=== PATIENT | female | born 1985 | race Caucasian/White ===

== ENCOUNTER 2019-04-07 06:40 | Inpatient (IN) | payer OTHER ==
[~2019-04-07] VITALS: Ht 154.9 cm; Wt 96.2 kg
[2019-04-07] MEDS: LACTATED RINGER'S 1,000 ML IV SCH ×2 (07:27→15:27)
[2019-04-07] MEDS ORDERED: METHYLERGONOVINE 0.2 MG INJ IM PRN ×2 (07:30→12:00)
[2019-04-07] MEDS ORDERED: CARBOPROST 250 MCG INJ IM PRN ×2 (07:30→12:00)
[2019-04-07] MEDS ORDERED: CEFAZOLIN 2 GM/50 ML (PMX) 50 ML IVPB SCH (07:30)
[2019-04-07] MEDS ORDERED: MISOPROSTOL 200 MCG TAB PR PRN ×2 (07:30→12:00)
[2019-04-07] MEDS ORDERED: OXYTOCIN 30 UNITS/LR 500 ML IV SCH ×2 (07:30→11:55)
[2019-04-07] MEDS ORDERED: OXYTOCIN 30 UNITS/LR 500 ML IV PRN ×2 (07:30→12:00)
[2019-04-07 08:25] VITALS: Ht 154.9 cm; Wt 96.2 kg
[2019-04-07] MEDS ORDERED: LACTATED RINGER'S 1,000 ML IV ONE (08:34)
--- NOTE | 2019-04-07 08:34 | PREAC ---
Date/Time of Note Date/Time of Note DATE: 04/07/19 TIME: 08:32 Anesthesia Eval and Record Evaluation Time Pre-Procedure Interview DATE: 04/07/19 TIME: 08:32 Age 33 Sex female NPO: 8 hrs Preoperative diagnosis twin Planned procedure repeat c section and bilateral tubal ligation Past Medical History Past Medical History: Includes Musculoskeletal: Rheumatoid arthritis : : (4), Para: (3), Gestational age: (37.5), Twin Surgery & Anesthesia Issues No known issue Meds Anticoagulation: No Beta Lucien within 24 hr: No Reason Beta Lucien not given: Pt. not on B-Lucien Current Medications Lactated Ringer's 1,000 ml @ 125 mls/hr Q8H IV ; Start 04/07/19 at 07:27 Cefazolin Sodium/ Dextrose 50 ml @ 100 mls/hr ONCE IVPB ; Start 04/07/19 at 07:30 Oxytocin/Lactated Ringer's 500 ml @ 125 mls/hr POST IV ; Start 04/07/19 at 07:30 Oxytocin/Lactated Ringer's 500 ml @ 0 mls/hr ONCE PRN IV .VAGINAL BLEEDING; Start 04/07/19 at 07:30 Methylergonovine Maleate (Methergine) 0.2 mg ONCE PRN IM .VAGINAL BLEEDING; Start 04/07/19 at 07:30 Carboprost Tromethamine (Hemabate) 250 mcg ONCE PRN IM .VAGINAL BLEEDING; Start 04/07/19 at 07:30 Misoprostol (Cytotec) 1,000 mcg ONCE PRN [place] .VAGINAL BLEEDING; Start 04/07/19 at 07:30 Meds reviewed: Yes Allergies Coded Allergies: No Known Allergy (Unverified , 04/07/19) Allergies Reviewed: Yes Labs/Studies Labs Reviewed: Reviewed by anesthesiologist (pending and will be reviewed ) Blood Bank Test 04/07/19 07:27 Blood Product Summary Counts test: N/A Pre-procedure Exam Airway: Adequate mouth opening, Adequate thyromental dist Mallampati: Mallampati II Teeth: Normal Lung: Normal Heart: Normal ASA Physical Status ASA physical status: 2 Emergency: None Planned Anesthetic Neuraxial: Spinal Planned Pain Management Sub-arachniod narcotics, Parenteral pain med Pre-operative Attestations Prior to commencing anesthesia and surgery, the patient was re-evaluated, there was verification of: *The patient's identity *The results of appropriate recent lab work and preoperative vital signs *The above evaluation not changing prior to induction *Anesthetic plan, risk benefits, alternative and complications discussed with patient/family; questions answered; patient/family understands, accepts and wishes to proceed. GIANNA LINDSAY MD April 07, 2019 08:34
[2019-04-07] MEDS ORDERED: METOCLOPRAMIDE 10 MG INJ IV ONE (09:00)
[2019-04-07] MEDS ORDERED: CITRIC ACID/NA CITRATE 30 ML CUP PO ONE (09:00)
[2019-04-07] MEDS ORDERED: FAMOTIDINE 20 MG INJ IV ONE (09:00)
[2019-04-07] MEDS ORDERED: morphine SULFATE/PF (10 MG/10 ML) INJ ONE (09:55)
[2019-04-07] MEDS ORDERED: ONDANSETRON 4 MG INJ ONE (10:12)
[2019-04-07] MEDS ORDERED: PHENYLephrine (100 MCG/ML) 10ML SYG ONE (10:12)
--- NOTE | 2019-04-07 10:19 | PREOPHP ---
DATE OF ADMISSION: 04/07/2019 HISTORY OF PRESENT ILLNESS: At 37 and 5/7 weeks, admitted to labor and delivery area for repeat C-se ction. This patient was admitted on 04/07/2019. She had care in my [facility] office and the care was uneventful. She has been followed by the perinatologist, Dr. James because of twi ns. Dr. James advised the patient to be delivered between 37 to 38 weeks. PAST PERSONAL HISTORY: No history of diabetes, TB, asthma nor allergy. The patient does not smoke, does not drink. She does not take any drugs except her iron and vitamins. She had menarche at the a ge of 9, every 28 days interval, 3 to 4 days duration, and moderate in amount. She is 4, par a 3. Her first delivery was in 2010, second 2014 and third 2017, all by . FAMILY HISTORY: Noncontributory. REVIEW OF SYSTEMS: CARDIOVASCULAR: No chest pains. RESPIRATORY: No cough. GASTROINTESTINAL: No diarrhea, no vomiting. GENITOURINARY: No dysuria. PHYSICAL EXAMINATION: GENERAL: Reveals a conscious, coherent lady and in no acute distress. VITAL SIGNS: Her blood pressure 120/80, pulse rate 80 per minute, respirations 16 per minute. BREASTS, HEART AND LUNGS: Within normal limits. ABDOMEN: Soft, fundic height 39 cm. heart tones normal for both babies. PELVIC: Revealed the cervix to be 2 to 3 cm dilated, 100% effaced station floating in cephalic prese ntation with the bag of water intact. EXTREMITIES: No pedal edema. ADMITTING DIAGNOSES: 37 and 5/7 weeks intrauterine twin with 3 previous sections, and multiparity. The patient desires sterilization. The patient was planned to have a repeat C-sec tion, plus tubal ligation. The procedures were explained to the patient and she understood everythin g totally. The risks, benefits and alternatives were discussed with her as well. Dictated By: KARINA TRIANA MD NS/NTS Conf#: [id number] DID#: [id number] CC: KARINA TRIANA MD;*EndCC*
[2019-04-07] MEDS ORDERED: MIDAZOLAM 1 MG/ML 2 ML INJ ONE (10:30)
[2019-04-07] MEDS ORDERED: FENTAnyl 50 MCG/ML VIAL ONE (10:44)
[2019-04-07] MEDS ORDERED: HYDROmorphONE 1 MG/5 ML IV SYRINGE IV PRN ×3 (11:00)
[2019-04-07] MEDS ORDERED: KETOROLAC 30 MG INJ IV PRN ×2 (11:00→12:30)
[2019-04-07] MEDS ORDERED: MEPERIDINE 25 MG INJ IV PRN (11:00)
[2019-04-07] MEDS ORDERED: PROCHLORPERAZINE 10 MG INJ IV PRN (11:00)
[2019-04-07] MEDS ORDERED: ONDANSETRON 4 MG INJ IV PRN ×2 (11:00→12:30)
[2019-04-07] MEDS ORDERED: DIPHENHYDRAMINE 50 MG INJ IV PRN ×2 (11:00→12:30)
[2019-04-07] MEDS ORDERED: FENTAnyl 50 MCG/ML VIAL IV PRN ×3 (11:00)
[2019-04-07] MEDS ORDERED: LACTATED RINGER'S 1,000 ML IV SCH (11:55)
--- NOTE | 2019-04-07 11:55 | OPPN ---
Date/Time of Note Date/Time of Note DATE: 04/07/19 TIME: 11:53 Operative Report Planned Procedure Procedure date April 07, 2019 Procedure(s) REPEAT CSECTION AND BTL Performed by see signature line Mason Tender: SUNITA RAUSCH 2nd Mason Tender none Pre-procedure diagnosis 37 WEEKS TWIN PREVIOUS CSECTION MULTIPARITY [id number] Anesthesia Type: [id number] spinal Post-Procedure Post-procedure diagnosis 37 WEEKS TWIN PREVIOUS CSECTION MULTIPARITY Findings TWIN A Live Baby BOY, Apgars9/9 5LBS 9OZ TWIN B GIRL LIVE BABY GIRL 8/9 5LBS Estimated Blood Loss: 600 - 700 mls Specimen(s) none Grafts/Implant(s) PLACENTA Complication(s) none KARINA TRIANA MD April 07, 2019 11:55
[2019-04-07] MEDS ORDERED: HYDROCODONE/APAP (5/325) TAB PO PRN (12:00)
[2019-04-07] MEDS ORDERED: METHYLERGONOVINE 0.2 MG TAB PO PRN (12:00)
[2019-04-07] MEDS ORDERED: LANOLIN HPA 1 PKT TOP PRN (12:00)
[2019-04-07] MEDS ORDERED: HYDROmorphONE 0.5 MG/0.5 ML SYG IV PRN ×2 (12:30)
[2019-04-07] MEDS ORDERED: NALOXONE (0.4 MG/ML) INJ IV PRN (12:30)
[2019-04-07] MEDS ORDERED: ZOLPIDEM 5 MG TAB PO PRN (12:30)
--- NOTE | 2019-04-07 13:16 | OPR ---
DATE OF OPERATION: 04/07/2019 PREOPERATIVE DIAGNOSES: 1. A 37 and 5/7 weeks 'intrauterine , twin. 2. Three previous sections. 3. Multiparity. 4. The patient desires sterilization. POSTOPERATIVE DIAGNOSES: 1. A 37 and 5/7 weeks 'intrauterine , twin. 2. Three previous sections. 3. Multiparity. 4. The patient desires sterilization. SURGEON: Karina Nicholas MD SUPERVISOR SEWER SYSTEM: Andre Rayo MD ANESTHESIA: Spinal. ANESTHESIOLOGIST: Dione Bueno MD OPERATION PERFORMED: Repeat low transverse section, plus complete breech extraction for the second baby and bilateral tubal ligation and transection. OPERATIVE TECHNIQUE: Under spinal anesthesia, the patient was prepped and draped in the usual fashio n for abdominal surgery. After checking for the effect of the anesthesia, Pfannenstiel incision, 14 cm skin incision was performed. The incision was carried from the skin up to the fascia. Upon openi ng the skin up to the fascia, small blood vessels were noted to be oozing and these were all cauteriz ed. Fascia was opened transversely followed by splitting the muscles vertical and the peritoneum giovana tically. Upon opening the abdominal cavity, the bladder blade was put in place. A small lianne was pe rformed from the serosa up to the endometrium on the lower uterine segment and the lianne was carried s ideways with the aid of my 2 fingers. My left hand was inserted in the lower segment of the uterus a nd delivered the first baby. Bag of water was ruptured. Baby's head was delivered. Baby's airways were quickly suctioned with amniotic fluid. The anterior shoulder, posterior shoulder and rest of th e body of the baby were delivered. Baby's airways were quickly suctioned with amniotic fluid. Cord was clamped after 30 seconds. Baby was handed to the NICU team. Cord blood was obtained. Then, the second baby was delivered by rupturing the bag of water and the baby's buttocks were delivered follo wed by the delivery of the rest of the body of the baby by complete breech extraction without difficu lty. Baby's airways was quickly suctioned with amniotic fluid. Cord was clamped without waiting for 30 seconds. Cord segment was obtained for blood gases. Cord blood was obtained. Baby was handed t o the NICU team. The placenta was delivered manually and complete. Two placentas were noted. Uteru s was exteriorized. The uterus was cleansed with wet lap sponge to make sure that no membranes were left behind. After correct sponge count, the uterus was closed in the usual fashion using #1 c hromic for the first layer, continuous locking was used followed by #1 chromic for the second layer, imbricating sutures were used. Bleeders were checked and there was no bleeding noted. After checkin g for any bleeders in which there were none, both tubes and ovaries were inspected. They were health y looking. The back of the uterus was checked for any hematoma and there was none noted. Then, the right tube was grasped on the center where the avascular area was. A 1 cm tube was stick tied at the proximal and distal portion with 2-0 silk, stick tie with 2-0 chromic above the first silk tie and a nother free tie with 2-0 chromic above the second tie. The right tube was cut and the cut ends were cauterized. Fimbria was identified. Same thing was done on the left side. Left fimbria was identif ied. Bleeders were checked and there was no bleeding noted. Then once again, uterine incision was c hecked for any bleeders and there was no bleeding noted. After correct sponge count, needle count an d instrument count as confirmed by the technical photographer and clinical statistical programmer, the abdomen was closed in the usual fashion using 0 Vicryl for the peritoneum, 0 Vicryl for the muscles. For the fascia, 0 Vicryl anjelica nuous stitch was used followed by few mzkxib-kw-[id number] suture. For the subcutaneous tissue, it was cl osed with 3-0 Vicryl and the skin was closed with 3-0 Vicryl, subcuticular suture was used. The maria e ent tolerated the procedure well. Estimated blood loss was about 700 mL. After the , vagin al exam was done. Manual exploration of the uterus revealed some blood clots obtained from inside th e uterus, about 200 mL of blood clots noted and the uterus was slightly hypotonic, so that Methergine was given and Hemabate was given and uterus contracted. Baby A was delivered, baby boy at 10:24 a.m ., 9 and 9, weighing 2595 grams, 5 pounds and 9 ounces, 18.75 inches long. Baby B was delivere d at 10:26 a.m., 8 and 9, 5 pounds weighing 2255 grams, 18 inches long. Dictated By: KARINA DEE/CARMEN Conf#: [id number] DID#: [id number]
[2019-04-07 14:30] VITALS: BP 110/62; PULSE 72; RESP 18
[2019-04-07 15:30] VITALS: BP 115/78; RESP 20
[2019-04-07 19:50] VITALS: BP 125/61; PULSE 89; RESP 19
[2019-04-07] MEDS: GUAIFENESIN/DM 5ML CUP PO SCH (22:31)
[2019-04-07] MEDS: AMOXICILLIN 500 MG CAP PO SCH (22:31)
[2019-04-07] MEDS: SENNA/DOCUSATE NA (8.6MG/50MG) TAB PO SCH (22:31)
[2019-04-07 23:50] VITALS: BP 105/60; PULSE 71; RESP 19
[2019-04-08] MEDS: LACTATED RINGER'S 1,000 ML IV SCH (02:04)
[2019-04-08 03:50] VITALS: BP 106/53; PULSE 83; RESP 19
[2019-04-08] MEDS: AMOXICILLIN 500 MG CAP PO SCH ×3 (06:15→21:52)
[2019-04-08 08:20] VITALS: BP 116/61; PULSE 74; RESP 18
[2019-04-08] MEDS: GUAIFENESIN/DM 5ML CUP PO SCH ×4 (10:01→21:22)
[2019-04-08] MEDS: HYDROCODONE/APAP (5/325) TAB PO PRN ×3 (11:09→21:53)
[2019-04-08] MEDS: SENNA/DOCUSATE NA (8.6MG/50MG) TAB PO SCH ×2 (11:09→21:22)
--- NOTE | 2019-04-08 14:18 | PAC ---
Date/Time of Note Date/Time of Note DATE: 04/08/19 TIME: 14:17 Post-Anesthesia Notes Post-Anesthesia Note Last documented vital signs Vital Signs Date Temp Pulse Resp B/P (MAP) Pulse Ox O2 O2 Flow FiO2 Time Delivery Rate 04/08/19 98.9 83 19 106/53 96 Room Air 03:50 (70) 04/07/19 21 20:13 Activity: WNL Respiratory function: WNL Cardiovascular function: WNL Mental status: Baseline Pain reasonably controlled: Yes Hydration appropriate: Yes Nausea/Vomiting absent: Yes GIANNA LINDSAY MD April 08, 2019 14:18
[2019-04-08] MEDS: IBUPROFEN 800 MG TAB PO PRN (15:51)
[2019-04-08 16:00] VITALS: BP 109/63; PULSE 92; RESP 18
[2019-04-08 20:00] VITALS: BP 106/66; PULSE 81; RESP 17
--- NOTE | 2019-04-08 21:37 | PN ---
Date/Time of Note Date/Time of Note DATE: 04/08/19 TIME: 21:35 Assessment/Plan VTE Prophylaxis Risk score (from Ns)>0 risk: 2 SCD applied (from [facility]): No SCD contraindicated: low risk/ambulating Pharmacological prophylaxis: NA/contraindicated Pharm contraindication: low risk/ambulating Lines/Catheters IV Catheter Type (from [facility]): Peripheral IV Assessment/Plan Assessment/Plan POSTCSECTION DAY 1 CHRONIC IRON DEFICIENCY ANEMIA ORDERED ADVANCE DIET TOLERATED CBC ON 3RD POSTOP DAY Result Diagram: 04/08/19 0838 04/08/19 0838 Results 24hrs Laboratory Tests Test 04/08/19 05:59 04/08/19 08:38 Lab Scanned Report REFERENCE LAB White Blood Count 7.9 # Red Blood Count 3.19 L Hemoglobin 9.4 L Hematocrit 28.9 L Mean Corpuscular Volume 90.6 Mean Corpuscular Hemoglobin 29.5 Mean Corpuscular Hemoglobin Concent 32.5 Red Cell Distribution Width 14.8 H Platelet Count 198 Mean Platelet Volume 10.2 Immature Granulocytes % 0.400 Neutrophils % 72.7 Lymphocytes % 20.6 Monocytes % 5.2 Eosinophils % 0.8 Basophils % 0.3 Nucleated Red Blood Cells % 0.0 Immature Granulocytes # 0.030 Neutrophils # 5.8 Lymphocytes # 1.6 Monocytes # 0.4 Eosinophils # 0.1 Basophils # 0.0 Nucleated Red Blood Cells # 0.0 Sodium Level 136 Potassium Level 4.3 Chloride Level 106 Carbon Dioxide Level 27 Anion Gap 3 L Blood Urea Nitrogen 9 Creatinine 0.43 L Est Glomerular Filtrat Rate mL/min > 60 Glucose Level 53 L Calcium Level 8.1 L Subjective 24 Hr Interval Summary Free Text/Dictation POST CSECTION DAY 1 COMPLAIN OF INCISIONAL PAINS GOOD URINE OUTPUT PASSING GAS PER RECTUM NO BOWEL MOVEMENT YET Exam/Review of Systems Exam Vitals Vital Signs Date Temp Pulse Resp B/P (MAP) Pulse Ox O2 O2 Flow FiO2 Time Delivery Rate 04/08/19 98.4 81 17 106/66 Room Air 20:00 (79) 04/08/19 95 08:20 04/07/19 21 20:13 Intake and Output 04/07/19 04/07/19 04/08/19 1515:00 23:00 07:00 IntakeIntake Total 1125 ml 375 ml 1000 ml OutputOutput Total 300 ml 1000 ml BalanceBalance 825 ml 375 ml 0 ml Exam VITAL SIGNS STABLE: YES AFEBRILE: YES BREAST NOT ENGORGED, NON-TENDER, NO APPRECIABLE MASS: YES LUNGS CLEAR, NO RALES, WHEEZES, RHONCHI: YES SINUS RHYTHM WITHOUT MURMUR: YES ABDOMEN: NON-TENDER FUNDUS: BELOW UMBILICUS BOWEL SOUNDS: PRESENT UTERUS: FIRM INCISION (CLEAN, DRY, AND INTACT): YES LOCHIA: LIGHT DEEP TENDON REFLEXES: 0 EXTREMITIES: NO CALF TENDERNESS EDEMA SCALE: NONE Results Results 24hrs Laboratory Tests Test 04/08/19 05:59 04/08/19 08:38 Lab Scanned Report REFERENCE LAB White Blood Count 7.9 # Red Blood Count 3.19 L Hemoglobin 9.4 L Hematocrit 28.9 L Mean Corpuscular Volume 90.6 Mean Corpuscular Hemoglobin 29.5 Mean Corpuscular Hemoglobin Concent 32.5 Red Cell Distribution Width 14.8 H Platelet Count 198 Mean Platelet Volume 10.2 Immature Granulocytes % 0.400 Neutrophils % 72.7 Lymphocytes % 20.6 Monocytes % 5.2 Eosinophils % 0.8 Basophils % 0.3 Nucleated Red Blood Cells % 0.0 Immature Granulocytes # 0.030 Neutrophils # 5.8 Lymphocytes # 1.6 Monocytes # 0.4 Eosinophils # 0.1 Basophils # 0.0 Nucleated Red Blood Cells # 0.0 Sodium Level 136 Potassium Level 4.3 Chloride Level 106 Carbon Dioxide Level 27 Anion Gap 3 L Blood Urea Nitrogen 9 Creatinine 0.43 L Est Glomerular Filtrat Rate mL/min > 60 Glucose Level 53 L Calcium Level 8.1 L Medications Medication Current Medications Oxytocin/Lactated Ringer's 500 ml @ 0 mls/hr ONCE PRN IV .VAGINAL BLEEDING; Start 04/07/19 at 07:30 Methylergonovine Maleate (Methergine) 0.2 mg Q6H PRN PO .VAGINAL BLEEDING; Start 04/07/19 at 12:00 Acetaminophen/ Hydrocodone Bitart ([place] (5/325)) 1 tab Q4H PRN PO MODERATE PAIN LEVEL 4-6; Start 04/07/19 at 12:00 Acetaminophen/ Hydrocodone Bitart ([place] (5/325)) 2 tab Q4H PRN PO SEVERE PAIN LEVEL 7-10 Last administered on 04/08/19at 16:58; Admin Dose 2 TAB; Start 04/07/19 at 12:00 Ibuprofen (Motrin) 800 mg Q8 PRN PO MILD PAIN LEVEL 1-3 Last administered on 04/08/19 15:51; Admin Dose 800 MG; Start 04/07/19 at 12:00 Simethicone (Mylicon) 160 mg Q8H PRN PO .GAS; Start 04/07/19 at 12:00 Senna/Docusate Sodium (Senokot-S) 1 tab BID PO Last administered on 04/08/19 21:22; Admin Dose 1 TAB; Start 04/07/19 at 21:00 Lanolin (Lanolin Hpa) 1 applic BEDSIDE MEDICATION PRN TOP .NIPPLES; Start 04/07/19 at 12:00 Diphtheria/ Tetanus/Acell Pertussis (Adacel) 0.5 ml ONCE ONCE IM* ; Start 04/10/19 at 09:00; Stop 04/10/19 at 09:01 Measles/Mumps/ Rubella Vaccine Live (Mmr Ii Vaccine) 0.5 ml ONCE ONCE SC* ; Start 04/10/19 at 09:00; Stop 04/10/19 at 09:01 Oxytocin/Lactated Ringer's 500 ml @ 0 mls/hr ONCE PRN IV .VAGINAL BLEEDING; Start 04/07/19 at 12:00 Methylergonovine Maleate (Methergine) 0.2 mg ONCE PRN IM .VAGINAL BLEEDING; Start 04/07/19 at 12:00 Carboprost Tromethamine (Hemabate) 250 mcg ONCE PRN IM .VAGINAL BLEEDING; Start 04/07/19 at 12:00 Misoprostol (Cytotec) 1,000 mcg ONCE PRN [place] .VAGINAL BLEEDING; Start 04/07/19 at 12:00 Guaifenesin/ Dextromethorphan (Robitussin Dm Liquid Cup) 10 ml QID PO Last administered on 04/08/19 21:22; Admin Dose 10 ML; Start 04/07/19 at 21:00 Amoxicillin (Amoxicillin) 500 mg Q8 PO Last administered on 04/08/19at 15:44; Admin Dose 500 MG; Start 04/07/19 at 22:00 KARINA TRIANA MD April 08, 2019 21:37
[2019-04-09] MEDS: IBUPROFEN 800 MG TAB PO PRN ×3 (02:23→22:11)
[2019-04-09 03:49] VITALS: BP 109/67; PULSE 87; RESP 18
[2019-04-09] MEDS: HYDROCODONE/APAP (5/325) TAB PO PRN ×2 (05:40→16:19)
[2019-04-09] MEDS: AMOXICILLIN 500 MG CAP PO SCH ×3 (05:40→22:10)
[2019-04-09] MEDS ORDERED: BISACODYL 10 MG SUPP PR ONE ×2 (06:30→18:00)
[2019-04-09] MEDS ORDERED: MAGNESIUM HYDROXIDE 30ML CUP PO ONE ×2 (06:30→18:00)
[2019-04-09 08:00] VITALS: BP 107/63; PULSE 77; RESP 16
[2019-04-09] MEDS: SENNA/DOCUSATE NA (8.6MG/50MG) TAB PO SCH ×2 (09:26→21:00)
[2019-04-09] MEDS: GUAIFENESIN/DM 5ML CUP PO SCH ×4 (10:49→20:49)
[2019-04-09 15:45] VITALS: BP 124/74; PULSE 103; RESP 18
[2019-04-09 16:00] VITALS: BP_SYST 124; BP_DIAS 74; BP_DIAS 94; PULSE 103; RESP 18
[2019-04-09 20:45] VITALS: BP 120/64; PULSE 91; RESP 18
[2019-04-10 04:00] VITALS: BP 105/60; PULSE 70; RESP 17
[2019-04-10] MEDS: AMOXICILLIN 500 MG CAP PO SCH ×2 (05:27→17:20)
[2019-04-10] MEDS: HYDROCODONE/APAP (5/325) TAB PO PRN ×2 (05:28→17:20)
[2019-04-10 08:00] VITALS: BP_SYST 109; BP_SYST 156; BP_DIAS 62; BP_DIAS 99; PULSE 71; PULSE 88; RESP 18; RESP 20
[2019-04-10] MEDS: SENNA/DOCUSATE NA (8.6MG/50MG) TAB PO SCH (09:00)
[2019-04-10] MEDS ORDERED: MEASLES,MUMPS,RUBELLA VACCINE INJ SC* ONE (09:00)
[2019-04-10] MEDS ORDERED: DIPHTH/TET/ACEL PERTUSS (ADULT) 0.5 ML VIAL IM* ONE (09:00)
[2019-04-10] MEDS: IBUPROFEN 800 MG TAB PO PRN (11:02)
[2019-04-10] MEDS: GUAIFENESIN/DM 5ML CUP PO SCH ×2 (11:02→13:00)
[2019-04-10 16:00] VITALS: BP 122/70; PULSE 89; RESP 20
--- NOTE | 2019-04-10 18:27 | PN ---
Date/Time of Note Date/Time of Note DATE: 04/10/19 TIME: 18:26 Assessment/Plan VTE Prophylaxis Risk score (from Nsg)>0 risk: 2 SCD applied (from Nsg): No SCD contraindicated: low risk/ambulating Pharmacological prophylaxis: NA/contraindicated Pharm contraindication: low risk/ambulating Lines/Catheters IV Catheter Type (from Nrsg): Peripheral IV Assessment/Plan Assessment/Plan POST CSECTION CHRONIC IRON DEFICIENCY ANEMIA HOME TODAT COUNSELED INSTRUCTED PRESCRIPTION GIVEN FOR PAIN RETURN TO CLINIC IN 2 WEEKS CALL OFFICE IF THERE IS ANY PROBLEM OR CONCERN CONTINUE WITH VITAMINS OD AND FERROUS SULFATE 325MG PO TID DIET ADVISED Result Diagram: 04/10/19 0744 04/08/19 0838 Results 24hrs Laboratory Tests Test 04/10/19 07:44 White Blood Count 9.7 # Red Blood Count 2.86 L Hemoglobin 8.3 L Hematocrit 26.2 L Mean Corpuscular Volume 91.6 Mean Corpuscular Hemoglobin 29.0 Mean Corpuscular Hemoglobin Concent 31.7 L Red Cell Distribution Width 15.2 H Platelet Count 221 Mean Platelet Volume 9.9 Immature Granulocytes % 0.500 H Neutrophils % 75.5 Lymphocytes % 16.4 Monocytes % 5.4 Eosinophils % 2.1 Basophils % 0.1 Nucleated Red Blood Cells % 0.0 Immature Granulocytes # 0.050 H Neutrophils # 7.3 Lymphocytes # 1.6 Monocytes # 0.5 Eosinophils # 0.2 Basophils # 0.0 Nucleated Red Blood Cells # 0.0 Subjective 24 Hr Interval Summary Free Text/Dictation POST CSECTION LITTLE BOWEL MOVEMENT GOOD URINE OUTPUT FEELS LESS INCISIONAL PAINS Exam/Review of Systems Exam Vitals Vital Signs Date Temp Pulse Resp B/P (MAP) Pulse Ox O2 O2 Flow FiO2 Time Delivery Rate 04/10/19 98.2 88 18 156/99 Room Air 08:00 (118) 04/08/19 95 08:20 04/07/19 21 20:13 Intake and Output 04/09/19 04/09/19 04/10/19 1515:00 23:00 07:00 IntakeIntake Total 380 ml BalanceBalance 380 ml Exam VITAL SIGNS STABLE: YES AFEBRILE: YES BREAST NOT ENGORGED, NON-TENDER, NO APPRECIABLE MASS: YES LUNGS CLEAR, NO RALES, WHEEZES, RHONCHI: YES SINUS RHYTHM WITHOUT MURMUR: YES ABDOMEN: NON-TENDER FUNDUS: BELOW UMBILICUS BOWEL SOUNDS: PRESENT UTERUS: FIRM INCISION (CLEAN, DRY, AND INTACT): YES LOCHIA: LIGHT DEEP TENDON REFLEXES: 0 EXTREMITIES: NO CALF TENDERNESS EDEMA SCALE: NONE Results Results 24hrs Laboratory Tests Test 04/10/19 07:44 White Blood Count 9.7 # Red Blood Count 2.86 L Hemoglobin 8.3 L Hematocrit 26.2 L Mean Corpuscular Volume 91.6 Mean Corpuscular Hemoglobin 29.0 Mean Corpuscular Hemoglobin Concent 31.7 L Red Cell Distribution Width 15.2 H Platelet Count 221 Mean Platelet Volume 9.9 Immature Granulocytes % 0.500 H Neutrophils % 75.5 Lymphocytes % 16.4 Monocytes % 5.4 Eosinophils % 2.1 Basophils % 0.1 Nucleated Red Blood Cells % 0.0 Immature Granulocytes # 0.050 H Neutrophils # 7.3 Lymphocytes # 1.6 Monocytes # 0.5 Eosinophils # 0.2 Basophils # 0.0 Nucleated Red Blood Cells # 0.0 Medications Medication Current Medications Oxytocin/Lactated Ringer's 500 ml @ 0 mls/hr ONCE PRN IV .VAGINAL BLEEDING; Start 04/07/19 at 07:30 Methylergonovine Maleate (Methergine) 0.2 mg Q6H PRN PO .VAGINAL BLEEDING; Start 04/07/19 at 12:00 Acetaminophen/ Hydrocodone Bitart ([place] (5/325)) 1 tab Q4H PRN PO MODERATE PAIN LEVEL 4-6 Last administered on 04/10/19 11:02; Admin Dose 1 TAB; Start 04/07/19 at 12:00 Acetaminophen/ Hydrocodone Bitart ([place] (5/325)) 2 tab Q4H PRN PO SEVERE PAIN LEVEL 7-10 Last administered on 04/10/19 17:20; Admin Dose 2 TAB; Start 04/07/19 at 12:00 Ibuprofen (Motrin) 800 mg Q8 PRN PO MILD PAIN LEVEL 1-3 Last administered on 11:02; Admin Dose 800 MG; Start 04/07/19 at 12:00 Simethicone (Mylicon) 160 mg Q8H PRN PO .GAS Last administered on 04/09/19at 17:39; Admin Dose 160 MG; Start 04/07/19 at 12:00 Senna/Docusate Sodium (Senokot-S) 1 tab BID PO Last administered on 04/09/19at 09:26; Admin Dose 1 TAB; Start 04/07/19 at 21:00 Lanolin (Lanolin Hpa) 1 applic BEDSIDE MEDICATION PRN TOP .NIPPLES; Start 04/07/19 at 12:00 Oxytocin/Lactated Ringer's 500 ml @ 0 mls/hr ONCE PRN IV .VAGINAL BLEEDING; Start 04/07/19 at 12:00 Methylergonovine Maleate (Methergine) 0.2 mg ONCE PRN IM .VAGINAL BLEEDING; Start 04/07/19 at 12:00 Carboprost Tromethamine (Hemabate) 250 mcg ONCE PRN IM .VAGINAL BLEEDING; Start 04/07/19 at 12:00 Misoprostol (Cytotec) 1,000 mcg ONCE PRN [place] .VAGINAL BLEEDING; Start 04/07/19 at 12:00 Guaifenesin/ Dextromethorphan (Robitussin Dm Liquid Cup) 10 ml QID PO Last administered on 04/10/19at 11:02; Admin Dose 10 ML; Start 04/07/19 at 21:00 Amoxicillin (Amoxicillin) 500 mg Q8 PO Last administered on 04/10/19at 17:20; Admin Dose 500 MG; Start 04/07/19 at 22:00 KARINA TRIANA MD April 10, 2019 18:27
--- NOTE | 2019-04-11 19:26 | DELSUM ---
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 Babies in Womb: 2 Attempted: No Labor Anesthesia: None LABOR INFORMATION Reason for Induction: Not Applicable Oxytocin: N/A Group B Beta Strep: Negative Antibiotics # of Doses: 1 Antibiotics Time of Last Dose: 04/07/2019 09:56 Steroids Given: None Reason Steroids Not Administered: Not Applicable MEMBRANES Membranes Rupture Method: Artificial Rupture of Membranes: 04/07/2019 10:24 Length of Rupture (hr): 0.00 Amniotic Fluid Color: Clear Amniotic Fluid Amount: Moderate Amniotic Fluid Odor: None STAGES OF LABOR Stage 3 hr: 0 Stage 3 min: 4 CSECTION DELIVERY Primary Indication: Repeat Elective Secondary Indication: Multiple Gestation CSection Urgency: Elective CSection Incidence: Repeat Labor: No Labor Elective: N/A CSection Incision: Lower Uterine Transverse Sterilization Procedure: [place] BABY A INFORMATION Delivery Date/Time: 04/07/2019 10:24 Method of Delivery: Born in Route : Yes : N/A Forceps: N/A Vacuum Extraction: N/A Shoulder Dystocia : N/A SHOULDER DYSTOCIA BABY A Infant Delivery Date/Time: 04/07/2019 10:24 PRESENTATION/POSITION BABY A Presentation: Cephalic Cephalic Presentation: Vertex Vertex Position: Left Occipital Anterior Breech Presentation: N/A PLACENTA INFORMATION BABY A Placenta Delivery Time : 04/07/2019 10:28 Placenta Method of Delivery: Manual Removal Placenta Status: Delivered SCORES BABY A Heart Rate 1 min: >100 bpm Resp Effort 1 min: Good Cry Reflex Irritability 1 min: Cough/Sneeze/Pulls Away Muscle Tone 1 min: Active Motion Color 1 min: Body [place], Extremit Blue SCORE 1 MIN: 9 Heart Rate 5 min: >100 bpm Resp Effort 5 min: Good Cry Reflex Irritability 5 min: Cough/Sneeze/Pulls Away Muscle Tone 5 min: Active Motion Color 5 min: Body [place], Extremit Blue Resuscitation Effort 5 min: Oxygen SCORE 5 MIN: 9 INFORMATION BABY A Gestational Age at Delivery: 37.5 Gestational Status: Early Term- 37- 38.6 Weeks Outcome : Liveborn Condition : Stable Infant Sex: Male IDENTIFICATION/MEDS BABY A ID Band Number: [id number] ID Band Location: Right Leg; Left Arm Sensor Applied: Yes Sensor Number: [id number] Sensor Location : Cord Clamp Vitamin K Given : Not Given Erythromycin Given: Not Given WEIGHT/LENGTH BABY A Infant Birthweight (gm): 2595 Weight (lb): 5 Infant Weight (oz): 12 Infant Length (in): 18.75 Infant Length (cm): 47.63 CORD INFORMATION BABY A No. Cord Vessels: 3 Nuchal Cord : N/A Cord Blood Taken: Yes Suction: Mouth; Nose ASSESSMENT BABY A Complications: None Physical Findings at Delivery: Within Normal Limits Infant Respirations: Appears Normal Anesthesiology Medical Doctor/ALS Called : No Care By: Thelma Cook Transferred To: Remains with Mother BABY B INFORMATION Delivery Date/Time: 04/07/2019 10:26 Method of Delivery : Born in Route : Yes : N/A Forceps : N/A Vacuum Extraction: N/A Shoulder Dystocia : N/A SHOULDER DYSTOCIA BABY B Delivery Date/Time: 04/07/2019 10:26 PRESENTATION/POSITION BABY B Presentation : Breech Cephalic Position : N/A Breech Position: Single Footling ROM/PLACENTA INFO BABY B Rupture of Membranes: 04/07/2019 10:24 Length of Rupture (hr): 0.03 Placenta Delivery Time : 04/07/2019 10:28 Placenta Method of Delivery: Manual Removal Placental Status : Delivered SCORES BABY B Heart Rate 1 min: >100 bpm Resp Effort 1 min: Good Cry Reflex Irritability 1 min: Cough/Sneeze/Pulls Away Muscle Tone 1 min: Active Motion Color 1 min: Blue/Pale Resuscitation Effort 1 min: Tactile Stimulation SCORE 1 MIN: 8 Heart Rate 5 min: >100 bpm Resp Effort 5 min: Good Cry Reflex Irritability 5 min: Cough/Sneeze/Pulls Away Muscle Tone 5 min: Active Motion Color 5 min: Body [place], Extremit Blue Resuscitation Effort 5 min: Tactile Stimulation SCORE 5 MIN: 9 INFORMATION BABY B Gestational Age at Delivery: 37.5 Gestational Status : Early Term- 37- 38.6 Weeks Infant Outcome : Liveborn Infant Condition : Stable Sex : Female IDENTIFICATION/MEDS BABY B ID Band Number : [id number] ID Band Location : Right Leg; Left Arm Sensor Applied: Yes Sensor Number : [id number] Sensor Location : Cord Clamp Vitamin K Given : Not Given Erythromycin Given : Not Given WEIGHT/LENGTH BABY B Birthweight (gm): 2255 Infant Weight (lb) : 5 Weight (oz): 0 Length (in): 18.00 Infant Length (cm): 45.72 CORD INFORMATION BABY B No. Cord Vessels : 3 Nuchal Cord : N/A Cord Blood Taken : Yes Infant Suction : Mouth; Nose ASSESSMENT BABY B Infant Complications : None Physical Findings at Delivery: Within Normal Limits Infant Respirations : Appears Normal Anesthesiology Medical Doctor/ALS Called : No Infant Care By : Thelma Cook Transfer To: Remains with Mother
== END 2019-04-10 18:50 | disposition home or self-care (01) | DRG 785 ==
LOC: L-D 06:40 → PP1 14:19
PROVIDERS: ADMIT Obstetrics & Gynecology; ATTEND Obstetrics & Gynecology
PROC: 0U570ZZ Destruction of Bilateral Fallopian Tubes, Open Approach (ICD-10-PCS; 2019-04-07)
PROC: 10D00Z1 Extraction of Products of Conception, Low, Open Approach (ICD-10-PCS; principal; 2019-04-07 10:30)
DX: O30.043 Twin pregnancy, dichorionic/diamniotic, third trimester (principal); O32.1XX2 Maternal care for breech presentation, fetus 2; O34.211 Maternal care for low transverse scar from previous cesarean delivery; O99.02 Anemia complicating childbirth; D50.9 Iron deficiency anemia, unspecified; Z3A.37 37 weeks gestation of pregnancy; Z37.2 Twins, both liveborn; Z30.2 Encounter for sterilization
CPT/HCPCS: 36415; 36600; 80048; 82803; 85025; 85610; 85730; 86592; 86850; 86900; 86901; 86920; 88302; 88307; 99464; J1170; J1885; J2210; J2250; J2274; J2370; J2405; J2590; J2765; J3010; J7120